=== PATIENT | female | born 1950 | race Hispanic/Latino ===

== ENCOUNTER 2018-07-28 23:32 | Emergency (ER) | payer MEDICARE, OTHER ==
[2018-07-28 23:40] VITALS: BP 144/68; PULSE 80; RESP 16; TEMP 98.2; O2SAT 98
--- NOTE | 2018-07-29 01:19 | ED PDOC ---
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 Patient states that she tripped over a box and twisted her ankle. She is unable to bear weight. She denies any other injuries. 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 - Ankle/Foot Description Of Injury: Twisted Currently Unable To: Bear Weight Past Medical History Reviewed: Historical Data, Nursing Documentation, Vital Signs Vital Signs: Last Vital Signs Temp 98.2 F 07/28/18 23:36 Pulse 80 07/28/18 23:36 Resp 16 07/28/18 23:36 BP 144/68 07/28/18 23:36 Pulse Ox 98 07/28/18 23:36 Primary Care Provider: Non [facility] Provider, - Medical History PMH: Asthma - Family History Family History: States: Unknown Family Hx - Home Medications Home Medications: Ambulatory Orders Medication Instructions Recorded Aspirin [Aspirin Chewable] 162 mg PO DAILY #8 ctb 07/29/18 traMADol [Ultram] 50 mg PO TID #12 tab 07/29/18 - Allergies Allergies/Adverse Reactions: Allergies Allergy/AdvReac Type Severity Reaction Status Date / Time No Known Allergies Allergy Verified 07/28/18 23:40 Review of Systems ROS Statement: Except As Marked, All Systems Reviewed And Found Negative Musculoskeletal: Positive for: Foot Pain (ankle) Physical Exam - Reviewed Nursing Documentation Reviewed: Yes Vital Signs Reviewed: Yes - Physical Exam Pulses-Dorsalis Pedis (L): 2+ Pulses-Dorsalis Pedis (R): 2+ Pulses-Post. Tibialis (L): 2+ Pulses-Post. Tibialis (R): 2+ Extremity: Positive for: Normal ROM (able to plantar flex and dorsi flex), Tenderness (lateral and medial maleolus), Swelling (ankle), Other (lower extremity is warm and well perfused) - ECG O2 Sat by Pulse Oximetry: 98 (RA) Pulse Ox Interpretation: Normal Medical Decision Making Medical Decision Making: Time: 00:22 A/P: Ankle sprain vs. Fracture CT Ext lower Tylenol 650 mg Ultram 50 mg RAD - Ankle left CT of the left ankle without contrast Clinical statement: fracture. Technique: Multiple axial CT images were obtained with 5 mm cuts through the right hip without administration of contrast. 3-D, coronal and sagittal reconstructions were also obtained. Comparison: 07/29 2018. Findings: There is an acute oblique fracture through the distal fibula. A small avulsion fracture is demonstrated along the anterior distal aspect of the fibula. There is also an acute oblique fracture through the posterior distal tibia, extending to the ankle mortise. Soft tissue swelling along the lateral aspect is appreciated. There is no significant joint effusion. Impression:1. Acute oblique fracture of the distal fibula. 2. Acute nondisplaced fracture of the posterior malleolus of the distal tibia, with the fracture extending to the articular surface. 3. Moderate lateral soft tissue swelling. Electronically signed on July 29, 2018 3:14:11 AM EDT by: Dustin Capps M.D., M.B.A., Certified By [employer] Trained MRI and CT Specialist Explained results to patient Podiatry saw patient at bedside, splint placed, crutch training provided by tech Explained to patient that she should keep leg elevated at all times and that if she travels, she runs the risk of DVT, ASA advised Followup provided for Dr. Tiffany Gong Narcotic safety discussed with patient, advised only to take tramadol as absolutely necessary, warned of addictive potential of opiates Scribe Attestation: Documented by Mushtaq Cevallos, acting as a scribe Sharon Faulkner MD. Provider Scribe Attestation: All medical record entries made by the Scribe were at my direction and personally dictated by me. I have reviewed the chart and agree that the record accurately reflects my personal performance of the history, physical exam, medical decision making, and the department course for this patient. I have also personally directed, reviewed, and agree with the discharge instructions and disposition. Disposition - Clinical Impression Clinical Impression: Ankle fracture - Patient ED Disposition Is Patient to be Admitted: No Counseled Patient/Family Regarding: Studies Performed, Diagnosis, Need For F ollowup, Rx Given - Disposition Referrals: Tiffany Gong DPM [Staff Provider] - (Dr. Tiffany Gong [address] [place] [address] ) Disposition: Routine/Home Disposition Time: 04:20 Condition: IMPROVED Prescriptions: Aspirin [Aspirin Chewable] 162 mg PO DAILY #8 ctb traMADol [Ultram] 50 mg PO TID #12 tab Instructions: Ankle Fracture, Opioids for Short-Term Treatment of Pain, Taking Narcotics Safely, How to Use Crutches Forms: [facility] (Romansh)
--- NOTE | 2018-07-29 04:34 | CP.PCM.CON ---
History of Present Illness - History of Present Illness History of Present Illness: Podiatry consult note for attending Dr. Gong: 67 year old female patient with PMH of DM and asthma seen and evaluated in ED for left ankle injury. Patient states that she tripped in a box yesterday at 9pm. She states that she twisted her left ankle. She states that She immediately felt pain and had swelling in her left ankle. She states that she couldn't bear weight on her left foot. She states that she was brought to the ED immediately. She states that the pain was 10/10 on VAS scale but it's improved now with the ultram pain med she took in the ED. She states that the pain is all around the ankle. Patient denies any tingling, numbness or burning sensation at her left LE. Patient denies any recent F/N/V/C/CP or SOB. She denies any other pedal complaint at this time. PMH: DM, Asthma. PSH: , R TKR. Allergies: NKDA. Social Hx: Denies smoking, or illicit drug use. Use EtOH socially Review of Systems - Review of Systems Review of Systems: As per HPI - Constitutional Constitutional: As Per HPI Past Patient History - Past Social History Smoking Status: Never Smoked - PULMONARY Hx Asthma: Yes - ENDOCRINE/METABOLIC Hx Diabetes Mellitus Type 1: Yes - PSYCHIATRIC Hx Substance Use: No - SURGICAL HISTORY Hx Surgeries: Yes Hx Section: Yes Hx Orthopedic Surgery: Yes (Right knee) - ANESTHESIA Hx Anesthesia: Yes Meds Home Medications: Home Medication List Medication Instructions Recorded Confirmed Type Aspirin [Aspirin Chewable] 162 mg PO DAILY #8 ctb 07/29/18 Rx traMADol [Ultram] 50 mg PO TID #12 tab 07/29/18 Rx Allergies/Adverse Reactions: Allergies Allergy/AdvReac Type Severity Reaction Status Date / Time No Known Allergies Allergy Verified 07/28/18 23:40 Physical Exam - Constitutional Appears: Well, Non-toxic, No Acute Distress - Head Exam Head Exam: ATRAUMATIC, NORMOCEPHALIC - Extremities Exam Additional comments: Left lower extremity focused exam: Vascular: DP/PT 2/4, Cap refill < 3 seconds, Temp gradient warm to cool from proximal to distal, Moderate non pitting edema and ecchymosis appreciated to perimalleolar area. Neuro: Gross and protective sensation intact. Derm: No open lesions . no clinical signs of infection appreciated. Moderate non pitting edema and ecchymosis appreciated to perimalleolar area. MSK: Pain with palpation of the perimallolar area, Pain with ankle ROM. MMT c ouldn't be assessed due to pain and guarding. - Neurological Exam Neurological exam: Alert, Oriented x3 - Psychiatric Exam Psychiatric exam: Normal Affect, Normal Mood Results - Vital Signs Recent Vital Signs: Last Vital Signs Temp 98.2 F 07/28/18 23:36 Pulse 80 07/28/18 23:36 Resp 16 07/28/18 23:36 BP 144/68 07/28/18 23:36 Pulse Ox 98 07/29/18 02:39 Assessment & Plan - Assessment and Plan (Free Text) Assessment: 67 year old female patient with PMH of DM and asthma seen and evaluated in ED for left ankle injury. Plan: Patient seen and evaluated Discussed with attending, Dr. Gong. Charts and Vitals reviewed: Afebrile. X-ray left ankle reviewed: Minimally displaced lower fibular fracture and Non displaced posterior malleolar fracture, Intra-articular. CT LLE: Acute oblique fracture of the distal fibula, Non displaced posterior malleolar fracture, Intra-articular. Moderate soft tissue swelling. Discussed X-ray and CT results with the patient. Applied posterior splint to the LLE Patient instructed to keep the splint C/D/I Patient instructed to stay NWB to the LLE and to ambulate using crutches. Patient educated RICE protocol and instructed to do it. Patient expressed verbal understanding Patient instructed to use the ultam pain medication that will prescribed to her by the ED DrEnrrique Discussed with the patient that she needs surgery to fix the fractures and was offered to be admitted for surgical fixation the fracture. Patient expressed verbal understanding. Patient declined admission and decided to follow up with her orthpedician at [place]. Discussed with the ED doctor that the patient might need a blood thinner since she has a long travel to [facility] in one day. Patient to follow up with her orthopedician or with DR. Gong at her office upon discharge from the ED. Thank you for the consult - Date & Time Date: 07/29/18 Time: 04:19
--- NOTE | 2018-07-29 08:43 | RAD ---
Date of service: 07/29/2018 PROCEDURE: Left Ankle Radiographs. HISTORY: fall, tripped COMPARISON: None available. TECHNIQUE: 3 views obtained. FINDINGS: BONES: There is an oblique, potentially comminuted fracture, at the lateral malleolus which is nondisplaced. Minimal avulsion or chip fracture inferior margins medial malleolus. No additional fracture appreciated. JOINTS: The ankle mortise appears intact as well as the talar dome. No subluxation or dislocation identified. SOFT TISSUES: Prominent lateral malleolar soft tissue edema is seen as well as moderate posterior soft tissue edema. OTHER FINDINGS: None. IMPRESSION: Oblique fracture is nondisplaced at the lateral malleolus but may be comminuted. No dislocation or subluxation. Moderate lateral and posterior soft tissue edema identified. Minimal avulsion or chip fracture inferior margins medial malleolus.
--- NOTE | 2018-07-29 16:00 | CT ---
Date of service: 07/29/2018 PROCEDURE: LEFT ANKLE CT WITHOUT CONTRAST HISTORY: ankle fracture COMPARISON: LEFT ANKLE RADIOGRAPHS 07/29/2018 TECHNIQUE: A volumetric CT acquisition through the left ankle was performed without intravenous contrast with reformatted dataset provided using 2 and 3D algorithms. Intravenous contrast was not administered as per referring physician request. Radiation dose:Total exam DLP = mGy-cm. This CT exam was performed using one or more of the following dose reduction techniques: Automated exposure control, adjustment of the mA and/or kV according to patient size, and/or use of iterative reconstruction technique. FINDINGS: There is oblique, nondisplaced fracture identified at the lateral malleolus of the left ankle with minimal comminution at the anterior inferior margins of the fracture. An additional nondisplaced fractures identified involving the posterior malleolus of the distal tibia, not clearly identified in the preliminary radiographs of the left ankle performed 07/29/2018. Mildly prominent soft tissue edema is seen related to the lateral malleolar fracture and is mild posterior to the posterior malleolar fracture distal tibia. Soft tissue edema is also identified in the dependent left heel soft tissues incidentally. No subluxation or dislocation or intrinsic destructive bony lesion identified. The medial mortise measures 3.4 mm greatest transverse width and the lateral mortise measures 2.2 mm greatest transverse width. IMPRESSION: Bimalleolar fractures are nondisplaced at the lateral and posterior malleoli as discussed above. Minimal comminution is associated with the inferior margins of the lateral malleolar fracture anteriorly. Moderate lateral malleolar and mild posterior malleolar soft tissue edema is related.
== END 2018-07-29 05:10 | disposition home or self-care (01) ==
LOC: H.ER 23:32
DX: S82.845A Nondisplaced bimalleolar fracture of left lower leg, initial encounter for closed fracture (principal); S82.62XA Displaced fracture of lateral malleolus of left fibula, initial encounter for closed fracture; W01.0XXA Fall on same level from slipping, tripping and stumbling without subsequent striking against object, initial encounter; E11.9 Type 2 diabetes mellitus without complications